=== PATIENT | female | born 1990 | race African-American/Black ===

== ENCOUNTER 2018-11-27 19:59 | Emergency (ER) | payer SELFPAY ==
[~2018-11-27] VITALS: Ht 170.2 cm; Wt 68.0 kg
[2018-11-27 20:00] VITALS: BP 103/73
== END 2018-11-27 21:55 | disposition home or self-care (01) ==
LOC: ER 20:05
DX: S20.212A Contusion of left front wall of thorax, initial encounter (principal); S80.02XA Contusion of left knee, initial encounter; Z98.890 Other specified postprocedural states; Z60.2 Problems related to living alone; V49.49XA Driver injured in collision with other motor vehicles in traffic accident, initial encounter; Y93.89 Activity, other specified; Y92.488 Other paved roadways as the place of occurrence of the external cause; Y99.8 Other external cause status
CPT/HCPCS: 71045-TC; 73564-TC; 84703-TC